=== PATIENT | female | born 1955 | race Caucasian/White ===

== ENCOUNTER 2022-11-25 23:21 | Emergency (ER) | payer MEDICARE, SELFPAY ==
[2022-11-25 23:30] VITALS: BP 146/76; PULSE 85; RESP 18; TEMP 35.3; O2SAT 95
--- NOTE | 2022-11-25 23:38 | CRLHL7_ITS ---
For Patients: As a result of the Century Cures Act, medical imaging exams and procedure reports are released immediately into your electronic medical record. You may view this report before your referring provider. If you have questions, please contact your health care provider. INDICATION: Fall. TECHNIQUE: CT head without contrast. COMPARISON: None. FINDINGS: CSF spaces: Within normal limits for age. Brain parenchyma and extra-axial spaces: The enriquez-white differentiation is normal. No sign of mass, hemorrhage, or midline shift. No extra-axial fluid collection. Skull base and calvarium: Left frontal scalp laceration/hematoma. The visualized paranasal sinuses and mastoid air cells demonstrate no acute or significant findings. The visualized orbits are grossly unremarkable. No skull fractures. IMPRESSION: No acute intracranial abnormality. Please note that all CT scans at this facility use dose modulation, iterative reconstruction, and/or weight-based dosing when appropriate to reduce radiation dose to as low as reasonably achievable. Dictated by Gunner Beverly MD @ 11/26/2022 1:22:59 AM (Electronically Signed)
--- NOTE | 2022-11-25 23:45 | ED.GENADULT ---
HPI - General Adult General Date Seen: 11/26/22 <Cyn Castillo MD - Last Filed: 11/26/22 01:30> Chief complaint: Laceration/Wound <Cyn Martinez MD - Last Filed: 11/28/22 15:09> Stated complaint: fall hit her head - Left side <Cyn Martinez MD - Last Filed: 11/28/22 15:09> Time Seen by Provider: 11/25/22 23:35 <Cyn Martinez MD - Last Filed: 11/28/22 15:09> Source: patient <Cyn Martinez MD - Last Filed: 11/28/22 15:09> Mode of arrival: ambulatory <Cyn Martinez MD - Last Filed: 11/28/22 15:09> Limitations: no limitations <Cyn Martinez MD - Last Filed: 11/28/22 15:09> History of Present Illness HPI narrative: 67-year-old female with a past medical history significant for depression, morbid obesity, hypertension, chronic pain syndrome, chronic kidney disease stage 3, chronic bronchitis presents after falling today. Patient states that she was vacuuming and she is not sure if her foot got caught on the corner or she tripped on the carpet but she fell forward hitting the ground with her head. She is complaining of pain across the forehead into the back of the head and down the left neck. No pain down the center of the neck. This occurred approximately 9 hours ago. She has been feeling dizzy ever since, a little off balance, no vertiginous symptoms. Patient is not on any blood thinners. <Cyn Martinez MD - Last Filed: 11/28/22 15:09> Related Data Allergies/adverse reactions: Allergies Allergy/AdvReac Type Severity Reaction Status Date / Time tramadol [From Ultram] Allergy Severe Verified 11/25/22 23:29 Sulfa (Sulfonamide Allergy Verified 11/25/22 23:29 Antibiotics) <Cyn Martinez MD - Last Filed: 11/28/22 15:09> Review of Systems Status of ROS: Reports: 10 or more systems reviewed and unremarkable except as noted in History and below <Cyn Martinez MD - Last Filed: 11/28/22 15:09> Narrative: Tetanus up to date 12/15/20. <Cyn Castillo MD - Last Filed: 11/26/22 01:30> [facility] Social History: Social History Smoking Status: Never smoker Non-prescribed substance use: denies use <Cyn Martinez MD - Last Filed: 11/28/22 15:09> Exam Narrative: Exam Narrative: Obese, well-developed patient in no acute distress. Alert and oriented x3. Answers questions appropriately. Mood and affect are appropriate. Thoughts are goal oriented and rational. No tangential or magical thinking noted. Patient speaks in full sentences without needing to catch her breath. HEENT: Normocephalic. Pupils are equally round reactive to light. Extraocular muscles are intact. Conjunctivae are moist without any icterus noted. Moist mucous membranes. Neck is soft without any lymphadenopathy. She has no tenderness to palpation of the cervical spine. She has good range of motion with flexion, extension, side bending and rotation with minimal discomfort over the left paraspinal musculature. She describes it as a ?pulling?. Her head is bandaged, at this time I did not remove her bandage to examine the laceration as patient would be going to imaging. Cardiovascular: Heart is regular rate and rhythm . Lungs: Clear to auscultation bilaterally no wheezes rhonchi or rales are appreciated. Patient takes deep breaths without any discomfort. Abdomen: Soft and nontender nondistended with normal bowel sounds. Skin: Well perfused without any obvious rashes. <Cyn Martinez MD - Last Filed: 11/28/22 15:09> Const: Vital Signs, click to edit/add: Vital Signs - 24 hr 11/25/22 23:30 Temperature 95.5 F L Pulse Rate [Left P ulse Oximeter] 85 Respiratory Rate 18 Blood Pressure [Ri ght Upper Arm] 146/76 H Pulse Oximetry 95 Oxygen Delivery Me thod Room Air <Cyn Martinez MD - Last Filed: 11/28/22 15:09> Vital Signs, click to edit/add: Vital Signs - 24 hr 11/25/22 23:30 Temperature 95.5 F L Pulse Rate [Left P ulse Oximeter] 85 Respiratory Rate 18 Blood Pressure [Ri ght Upper Arm] 146/76 H Pulse Oximetry 95 Oxygen Delivery Me thod Room Air <Cyn Castillo MD - Last Filed: 11/26/22 01:30> Course Course Hospital Course: 59-year-old female status post fall. At this time patient will go for to have a head CT done given her headache and dizziness. Care will be transferred to oncoming provider. <Cyn Martinez MD - Last Filed: 11/28/22 15:09> Reevaluation(s) Time of Reevaluation #1: 00:15 <Cyn Castillo MD - Last Filed: 11/26/22 01:30> Reevaluation #1: Was asked by Dr. Martinez to assess and repair wound. Awaiting head CT result but I do not see any significant abnormality on preliminary review. Will repair wound at this time. <Cyn Castillo MD - Last Filed: 11/26/22 01:30> Time of Reevaluation #2: 01:29 <Cyn Castillo MD - Last Filed: 11/26/22 01:30> Reevaluation #2: Patient requested to leave despite her head CT not being formally read. Was in the process of being read but she did not want wait. She did sign AMA paperwork. The formal reading came back as she was walking into the parking lot, nursing staff was able to let her know that the head CT was negative for acute traumatic change. <Cyn Castillo MD - Last Filed: 11/26/22 01:30> Vital Signs Vital signs: Initial Vital Signs Temperature 95.5 F L 11/25/22 23:30 Temperature Source Temporal Artery Scan 11/25/22 23:30 Pulse Rate 85 11/25/22 23:30 Pulse Rhythm Regular 11/25/22 23:30 Respiratory Rate 18 11/25/22 23:30 Blood Pressure 146/76 H 11/25/22 23:30 Blood Pressure Mean 99 11/25/22 23:30 Blood Pressure Position Sitting 11/25/22 23:30 Pulse Oximetry 95 11/25/22 23:30 Oxygen Delivery Method Room Air 11/25/22 23:30 Vital Signs Temperature 95.5 F L 11/25/22 23:30 Pulse Rate 85 11/25/22 23:30 Respiratory Rate 18 11/25/22 23:30 Blood Pressure 146/76 H 11/25/22 23:30 Pulse Oximetry 95 11/25/22 23:30 Oxygen Delivery Method Room Air 11/25/22 23:30 Temperature 95.5 F L 11/25/22 23:30 Pulse Rate 85 11/25/22 23:30 Respiratory Rate 18 11/25/22 23:30 Blood Pressure 146/76 H 11/25/22 23:30 Pulse Oximetry 95 11/25/22 23:30 Oxygen Delivery Method Room Air 11/25/22 23:30 <Cyn Martinez MD - Last Filed: 11/28/22 15:09> Initial Vital Signs Temperature 95.5 F L 11/25/22 23:30 Temperature Source Temporal Artery Scan 11/25/22 23:30 Pulse Rate 85 11/25/22 23:30 Pulse Rhythm Regular 11/25/22 23:30 Respiratory Rate 18 11/25/22 23:30 Blood Pressure 146/76 H 11/25/22 23:30 Blood Pressure Mean 99 11/25/22 23:30 Blood Pressure Position Sitting 11/25/22 23:30 Pulse Oximetry 95 11/25/22 23:30 Oxygen Delivery Method Room Air 11/25/22 23:30 Vital Signs Temperature 95.5 F L 11/25/22 23:30 Pulse Rate 85 11/25/22 23:30 Respiratory Rate 18 11/25/22 23:30 Blood Pressure 146/76 H 11/25/22 23:30 Pulse Oximetry 95 11/25/22 23:30 Oxygen Delivery Method Room Air 11/25/22 23:30 Temperature 95.5 F L 11/25/22 23:30 Pulse Rate 85 11/25/22 23:30 Respiratory Rate 18 11/25/22 23:30 Blood Pressure 146/76 H 11/25/22 23:30 Pulse Oximetry 95 11/25/22 23:30 Oxygen Delivery Method Room Air 11/25/22 23:30 <Cyn Castillo MD - Last Filed: 11/26/22 01:30> Medical Decision Making Imaging Data CT scan - head: Attestation: I have reviewed the pertinent imaging results. <Cyn Castillo MD - Last Filed: 11/26/22 01:30> My impression: I did not appreciate any acute pathology on my preliminary review. <Cyn Castillo MD - Last Filed: 11/26/22 01:30> Radiologist's impression: Patient: LAVERN DAVILA Facility:?[facility] Patient ID:?[id number] Site Patient ID:?[id number]. Site :?[id number] Study:?CT Head w/o Contrast-11/26/2022 12:19:08 AM Ordering Physician:Zabrina Addison Final Report: INDICATION: Fall. TECHNIQUE: CT head without contrast. COMPARISON: None. FINDINGS: CSF spaces: Within normal limits for age. Brain parenchyma and extra-axial spaces: The enriquez-white differentiation is normal. No sign of mass, hemorrhage, or midline shift. No extra-axial fluid collection. Skull base and calvarium: Left frontal scalp laceration/hematoma. The visualized paranasal sinuses and mastoid air cells demonstrate no acute or significant findings. The visualized orbits are grossly unremarkable. No skull fractures. IMPRESSION: No acute intracranial abnormality. Please note that all CT scans at this facility use dose modulation, iterative reconstruction, and/or weight-based dosing when appropriate to reduce radiation dose to as low as reasonably achievable. Dictated by Gunner Beverly MD @ 11/26/2022 1:22:59 AM (Electronic Signature) <Cyn Castillo MD - Last Filed: 11/26/22 01:30> Discharge Plan Discharge Clinical Impression: Forehead laceration, Fall <Cyn Martinez MD - Last Filed: 11/28/22 15:09> Patient Disposition: Home, Self-Care <Cyn Martinez MD - Last Filed: 11/28/22 15:09> Condition: Stable <Cyn Martinez MD - Last Filed: 11/28/22 15:09> Instructions: Care For Your Stitches (ED), Laceration (ED), Concussion (ED), Fall Prevention for Older Adults (ED) <Cyn Martinez MD - Last Filed: 11/28/22 15:09> Additional Instructions: use bacitracin or Vaseline to the wound to keep it moist until it is healed. Wound should be assessed in clinic in about 7-10 days to see if the sutures are appropriate for removal at that time. If there is concern for infection, please seek re-evaluation. Any time someone falls and hits there head, they can be a risk for concussion. Handout is given and if you are having ongoing symptoms that suggest concussion, follow up in clinic with your primary care provider. <Cyn Martinez MD - Last Filed: 11/28/22 15:09> Follow Up/Referrals: Pura Browne DO [Primary Care Provider] - <Cyn Martinez MD - Last Filed: 11/28/22 15:09> Stand Alone Forms: [facility] Info Instructions <Cyn Martinez MD - Last Filed: 11/28/22 15:09> Procedures Laceration Laceration 1: Pre procedure diagnosis: Left forehead laceration <Cyn Castillo MD - Last Filed: 11/26/22 01:30> Post procedure diagnosis: same <Cyn Castillo MD - Last Filed: 11/26/22 01:30> Site marking: not applicable <Cyn Castillo MD - Last Filed: 11/26/22 01:30> Verification/time out: correct patient, correct site and correct procedure <Cyn Castillo MD - Last Filed: 11/26/22 01:30> Name of person performing procedure: Cyn Castillo <Cyn Castillo MD - Last Filed: 11/26/22 01:30> Site: face ( left upper forehead just juxtaposed to the hairline) <Cyn Castillo MD - Last Filed: 11/26/22 01:30> Side (If applicable): left <Cyn Castillo MD - Last Filed: 11/26/22 01:30> Size (cm): 2.5 <Cyn Castillo MD - Last Filed: 11/26/22 01:30> Description: linear <Cyn Castillo MD - Last Filed: 11/26/22 01:30> Depth: simple, single layer <Cyn Castillo MD - Last Filed: 11/26/22 01:30> Local Anesthetic: lidocaine 1% and with epi <MD Alayna Rodriguez Last Filed: 11/26/22 01:30> Amount of anesthesia used (mL): 6 <MD Alayna Rodriguez Last Filed: 11/26/22 01:30> Pre-repair: wound explored and irrigated extensively <MD Alayna Rodriguez Last Filed: 11/26/22 01:30> Skin layer closed with: other ( Ethilon) <MD Alayna Rodriguez Last Filed: 11/26/22 01:30> Size (cm): 5-0 <MD Alayna Rodriguez Last Filed: 11/26/22 01:30> Number of sutures: 7 <MD Alayna Rodriguez Last Filed: 11/26/22 01:30> Technique: simple, interrupted <MD Alayna Rodriguez Last Filed: 11/26/22 01:30> Wound cleansing: sterile water <MD Alayna Rodriguez Last Filed: 11/26/22 01:30> Estimated blood loss (if any): none <MD Alayna Rodriguez Last Filed: 11/26/22 01:30> Conclusion: patient tolerated procedure <Cny Castillo MD - Last Filed: 11/26/22 01:30>
--- NOTE | 2022-11-26 01:36 | ED.NURSE ---
pt did not want to wait for CT to be read. Pt signed AMA form. Upon leaving, CT was read, no adverse finding in CT scan. Pt notified in parking lot.
== END 2022-11-26 01:38 | disposition home or self-care (01) ==
PROVIDERS: Emergency Provider Family Medicine; PCP Family Medicine
DX: S01.81XA Laceration without foreign body of other part of head, initial encounter (principal)
CPT/HCPCS: 12001; 70450; 99283; 99284